=== PATIENT | male | born 1940 | race Caucasian/White ===

== ENCOUNTER → 2017-06-16 | Outpatient (REF) | payer MEDICARE, OTHER ==
[2017-06-16 14:09] LABS: LDH LACTATE DEHYDROGENASE 215 U/L (87-241)
== END ==
LOC: M LAB REF 13:47
DX: C82.50 Diffuse follicle center lymphoma, unspecified site (principal)
CPT/HCPCS: 83615

== ENCOUNTER → 2017-12-23 | Outpatient (REF) | payer MEDICARE, OTHER ==
[2017-12-23 13:57] LABS: APPEARANCE, URINE CLEAR (CLEAR); BACTERIA, URINE AUTO NEGATIVE (NEGATIVE); BILIRUBIN, URINE AUTO NEGATIVE (NEGATIVE); BLOOD, URINE BLOOD NEGATIVE (NEGATIVE); COLOR, URINE YELLOW (YELLOW); GLUCOSE, URINE (UA) AUTO NEGATIVE (NEGATIVE); KETONE, URINE AUTO NEGATIVE (NEGATIVE); LEUKOCYTE ESTERASE, URINE AUTO NEGATIVE (NEGATIVE); MUCUS, URINE SMALL (NEGATIVE); NITRITE, URINE AUTO NEGATIVE (NEGATIVE); PROTEIN, URINE AUTO NEGATIVE (NEGATIVE); RBC, URINE AUTO 0 /HPF (0-3); SPECIFIC GRAVITY URINE AUTO 1.018 (1.002-1.035); SQUAMOUS EPITHELIAL CELL UR AU 0 /HPF (0-6); UROBILINOGEN, URINE AUTO 0.2 mg/dL (0.0-2.0); WBC, URINE AUTO 0 /HPF (0-3)
== END ==
LOC: M SMT 13:34
DX: N39.46 Mixed incontinence (principal)
CPT/HCPCS: 81001

== ENCOUNTER → 2018-10-05 | Outpatient (REF) | payer MEDICARE ==
[~2018-10-05] MED LIST: /OMEP10CA; ACET65TA; AMBI5TAB PO; COLA100C2 PO; COUM1TAB14 PO; COUM1TAB18; FIBER CON PO; FURO20TA2 OR; LACT10SO8; LASIX PO; LOVE1INJ; LOVENOX; MILKSUS; MIRALEX PO; NITR0.4S SL; OXYCODONE PO; PLAV75TA2 PO; PRED50TA; PREDPOW10; PROT1TAB2; SENN8.6T5; SIMV40TA2 PO; VESICARE; VESICARE PO; VICO5TAB; VITAMIN B12; [UNRECOGNIZED DRUG - OTHER] PO
== END ==
LOC: M LAB REF 16:38
PROVIDERS: ATTEND Internal Medicine
DX: N18.3 Chronic kidney disease, stage 3 (moderate) (principal)

== ENCOUNTER → 2019-04-06 | Outpatient (REF) | payer MEDICARE | LOC: M LAB REF 12:20 | PROVIDERS: ATTEND Internal Medicine | DX: C83.00 Small cell B-cell lymphoma, unspecified site (principal) ==

== ENCOUNTER → 2019-10-28 | Outpatient (REF) | payer MEDICARE, OTHER ==
[~2019-10-28] MED LIST changes: +ACE65ERTAB PO; +ACET1TAB55 PO; +ASPI81TAEC PO; +ATOR1TAB21 PO; +D31000TA2 PO; +DETR4CAP PO; +HEPA1INJ78 IV; +HEPA500023 IV; +HEPARIN XX; +NITR4TASL SL; +OMEP-218 PO; +PERCOCET PO; +PRIM50TA6 PO; +WARF-18 PO; +[UNRECOGNIZED DRUG - OTHER] XX
== END ==
LOC: M LAB REF 11:14
PROVIDERS: ATTEND Internal Medicine
DX: C83.00 Small cell B-cell lymphoma, unspecified site (principal); G25.0 Essential tremor; Z51.81 Encounter for therapeutic drug level monitoring

== ENCOUNTER 2020-03-31 13:02 | Inpatient (IN) | payer MEDICARE, OTHER ==
[~2020-03-31] VITALS: Ht 167.6 cm; Wt 70.8 kg
[~2020-03-31 13:02] MED LIST changes: -ACE65ERTAB PO; -ACET1TAB55 PO; -ASPI81TAEC PO; -ATOR1TAB21 PO; -D31000TA2 PO; -DETR4CAP PO; -HEPA1INJ78 IV; -HEPA500023 IV; -HEPARIN XX; -NITR4TASL SL; -OMEP-218 PO; -PERCOCET PO; -PRIM50TA6 PO; -WARF-18 PO; -[UNRECOGNIZED DRUG - OTHER] XX
[2020-03-31] MEDS ORDERED: NS 1,000 ML IV SCH (13:13)
[2020-03-31] MEDS ORDERED: MORPHINE 4 MG/ML 1ML VIAL/SYRINGE (J2270) IV ONE (13:15)
[2020-03-31] MEDS ORDERED: ONDANSETRON 4MG/2ML VIAL IV ONE (13:15)
[2020-03-31] MEDS ORDERED: LIDOCAINE 2% 5ML JELLY UROJET TOP ONE (13:15)
--- NOTE | 2020-03-31 13:55 | ECGEPIP ---
[facility] - ED Test Date: 2020-03-31 Pat Name: ESTEBAN MARTINEZ Department: Room: - Gender: Male Evp: lr : 1940 Requested By: JORGE HUNTER Order Number: [id number] Reading MD: Rand Bianchi Measurements Intervals [place] Rate: 90 P: 39 MN: 240 QRS: 24 QRSD: 97 T: 17 QT: 379 QTc: 465 Interpretive Statements SINUS RHYTHM WITH FIRST DEGREE AV BLOCK NO PRIOR Electronically Signed on 03-31-2020 13:55:01 EST by Rand Bianchi
--- NOTE | 2020-03-31 13:57 | REP ---
INDICATION: TRAUMA COMPARISON: None. TECHNIQUE: AP and lateral views of the mid to distal femur. FINDINGS: No obvious acute fracture or dislocation noted to the visualized femur. IMPRESSION: No acute fracture identified. <Electronically signed by Cheikh Joya > 03/31/20 [id number]
--- NOTE | 2020-03-31 13:58 | REP ---
INDICATION: PREOP COMPARISON: None. TECHNIQUE: Portable AP view of the chest FINDINGS: The mediastinum and cardiac silhouette are stable and within normal limits for portable technique. The lung christian are clear without acute consolidation, effusion, or pneumothorax. Skeletal structures are intact. IMPRESSION: No acute consolidation or effusion appreciated. <Electronically signed by Cheikh Joya > 03/31/20 1418
--- NOTE | 2020-03-31 13:59 | REP ---
INDICATION: INCLUDE PELVIS TRAUMA Nontraumatic hip pain. COMPARISON: None. TECHNIQUE: Frontal view of the pelvis with neutral and cross-table lateral views of the left hip. FINDINGS: There is an acute angulated fracture through the left femoral neck. Underlying age-related degenerative changes through the pelvis and hips noted. IMPRESSION: Acute angulated transverse fracture through the left femoral neck. <Electronically signed by Cheikh Joya > 03/31/20 [id number]
[2020-03-31] MEDS ORDERED: DEXTROSE 50% 50 ML SYRINGE IV PRN (14:00)
[2020-03-31] MEDS ORDERED: NALOXONE INJ 0.4MG/1ML VIAL (J2310 PER 1MG) IV PRN (14:00)
[2020-03-31] MEDS ORDERED: traMADol 50 MG TAB PO PRN ×2 (14:00)
[2020-03-31] MEDS ORDERED: GLUCAGON INJ 1MG VIAL SC PRN (14:00)
[2020-03-31] MEDS ORDERED: MORPHINE 2 MG/ML 1ML VIAL (J2270) IV PRN (14:00)
[2020-03-31] MEDS ORDERED: GLUCOSE 4GM CHEW TABLET PO PRN (14:00)
[2020-03-31] MEDS ORDERED: WARF-18 PO ×2 (14:10)
[2020-03-31] MEDS ORDERED: DETR4CAP PO (14:12)
[2020-03-31] MEDS ORDERED: D31000TA2 PO (14:12)
[2020-03-31] MEDS ORDERED: PRIM50TA6 PO (14:12)
[2020-03-31] MEDS ORDERED: ACE65ERTAB PO (14:12)
[2020-03-31 14:17] LABS: BASO % 0.3 % (0.0-1.0); EOS % 0.3 % (0.0-3.0); HEMATOCRIT 39.1 % (42.0-52.0); HEMOGLOBIN 12.7 g/dl (13.5-17.5); LYMPH # 1.6 10^3/uL (1.5-5.0); LYMPH % 17.8 % (24.0-44.0); MEAN CORPUSCULAR HEMOGLOBIN 31.4 pg (27.0-33.0); MEAN CORPUSCULAR HGB CONC 32.5 g/dl (32.0-36.5); MEAN CORPUSCULAR VOLUME 96.8 fl (80.0-96.0); MONO # 0.8 10^3/uL (0.0-0.8); MONO % 8.9 % (0.0-5.0); NEUTROPHILS # 6.4 10^3/uL (1.5-8.5); PLATELET COUNT, AUTOMATED 191 10^3/uL (150-450); RED BLOOD COUNT 4.04 10^6/uL (4.30-6.10); WHITE BLOOD COUNT 8.8 10^3/uL (4.0-10.0)
[2020-03-31 14:35] LABS: INR 1.88
[2020-03-31 14:50] LABS: ALBUMIN 3.6 GM/DL (3.2-5.2); ALT/SGPT 36 U/L (12-78); BILIRUBIN,DIRECT < 0.1 MG/DL (0.0-0.2); BILIRUBIN,TOTAL 0.3 MG/DL (0.2-1.0); BLOOD UREA NITROGEN 24 MG/DL (7-18); CALCIUM LEVEL 8.1 MG/DL (8.8-10.2); CARBON DIOXIDE LEVEL 27 MEQ/L (21-32); CHLORIDE LEVEL 107 MEQ/L (98-107); CK-MB VALUE MASS 3.3 NG/ML (<3.6); CPK CREATINE PHOSPHOKINASE 133 U/L (39-308); CREATININE FOR GFR 1.09 MG/DL (0.70-1.30); GLOMERULAR FILTRATION RATE > 60.0 (>35); GLUCOSE, FASTING 88 MG/DL (70-100); MB/CK RELATIVE INDEX 2.48 (< OR =4); POTASSIUM SERUM 4.2 MEQ/L (3.5-5.1); SODIUM LEVEL 141 MEQ/L (136-145); TOTAL PROTEIN 6.5 GM/DL (6.4-8.2)
[2020-03-31] MEDS ORDERED: MOM 30ML SUSPENSION UDC PO PRN (17:45)
[2020-03-31] MEDS ORDERED: MIRALAX *UNIT DOSE* 17GM PACKET PO PRN (17:45)
[2020-03-31] MEDS ORDERED: SENOKOT S TAB PO PRN (17:45)
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
[2020-03-31] MEDS ORDERED: PHYTONADIONE 2.5 MG **1/2 TAB PO ONE (19:00)
[2020-03-31] MEDS: METOPROLOL TART 12.5 MG PER 1/2 TAB PO SCH (20:14)
[2020-03-31] MEDS: PRIMIDONE 50 MG TAB PO SCH (20:15)
[2020-03-31] MEDS ORDERED: ACETAMINOPHEN TAB 650MG DOSE (2X325MG) PO PRN (21:15)
[2020-03-31 22:00] VITALS: BP 112/70
[2020-04-01] VITALS (9 sets, daily range): BP systolic 106–153; BP diastolic 66–95
[2020-04-01] MEDS ORDERED: ceFAZolin SOD 2 GM in IV 1 EA IV ONE (06:00)
[2020-04-01 06:10] LABS: HEMATOCRIT 39.5 % (42.0-52.0); HEMOGLOBIN 13.1 g/dl (13.5-17.5); MEAN CORPUSCULAR HEMOGLOBIN 32.1 pg (27.0-33.0); MEAN CORPUSCULAR HGB CONC 33.2 g/dl (32.0-36.5); MEAN CORPUSCULAR VOLUME 96.8 fl (80.0-96.0); PLATELET COUNT, AUTOMATED 167 10^3/uL (150-450); RED BLOOD COUNT 4.08 10^6/uL (4.30-6.10); WHITE BLOOD COUNT 10.9 10^3/uL (4.0-10.0)
[2020-04-01 06:20] LABS: INR 1.67; PROTHROMBIN TIME 20.1 SECONDS (12.5-14.3)
[2020-04-01] MEDS ORDERED: ceFAZolin 1GM VIAL (J0690 PER 500MG) As Ordered ONE (06:22)
[2020-04-01] MEDS ORDERED: ceFAZolin 2 GM/D5W 50 ML IV BAG (J0690 PER 500MG) As Ordered ONE (06:22)
[2020-04-01 06:30] LABS: BLOOD UREA NITROGEN 24 MG/DL (7-18); CALCIUM LEVEL 8.3 MG/DL (8.8-10.2); CARBON DIOXIDE LEVEL 29 MEQ/L (21-32); CHLORIDE LEVEL 106 MEQ/L (98-107); CREATININE FOR GFR 1.13 MG/DL (0.70-1.30); GLOMERULAR FILTRATION RATE > 60.0 (>35); GLUCOSE, FASTING 143 MG/DL (70-100); POTASSIUM SERUM 4.7 MEQ/L (3.5-5.1); SODIUM LEVEL 138 MEQ/L (136-145)
[2020-04-01] MEDS ORDERED: PHYTONADIONE 2.5 MG **1/2 TAB PO STA (07:14)
--- NOTE | 2020-04-01 07:20 | IPNPDOC ---
Date Seen The patient was seen on 04/01/20. Progress Note SUBJECTIVE: inr still elevated. ffp ordered. for or. npo after midnight . no new c/o. pain is controlled. no sob/cp/pressure/tightness. once inr<1.5, may go to OR OBJECTIVE: PHYSICAL EXAMINATION: VITAL SIGNS: See below GENERAL APPEARANCE: asleep but arousable. no distress HEENT: moist mm. No cervical lymphadenopathy or thyromegaly. no JVD CARDIOVASCULAR: S1, S2, irregularly irregular LUNGS: Clear to auscultation. No wheezing, rales or rhonchi ABDOMEN: Positive bowel sounds, soft, nontender, nondistended, normoactive bowel sounds. Well-healed surgical scars from prior splenectomy EXTREMITIES: No pitting edema. limited rom due to left hip fx. unable to assess. LABORATORY DATA: See below. IMAGING: INDICATION: TRAUMA COMPARISON: None. TECHNIQUE: AP and lateral views of the mid to distal femur. FINDINGS: No obvious acute fracture or dislocation noted to the visualized femur. IMPRESSION: No acute fracture identified. <Electronically signed by Cheikh Joya > 03/31/20 1353 INDICATION: INCLUDE PELVIS TRAUMA Nontraumatic hip pain. COMPARISON: None. TECHNIQUE: Frontal view of the pelvis with neutral and cross-table lateral views of the left hip. FINDINGS: There is an acute angulated fracture through the left femoral neck. Underlying age-related degenerative changes through the pelvis and hips noted. IMPRESSION: Acute angulated transverse fracture through the left femoral neck. <Electronically signed by Cheikh Joya > 03/31/20 1355 INDICATION: PREOP COMPARISON: None. TECHNIQUE: Portable AP view of the chest FINDINGS: The mediastinum and cardiac silhouette are stable and within normal limits for portable technique. The lung christian are clear without acute consolidation, effusion, or pneumothorax. Skeletal structures are intact. IMPRESSION: No acute consolidation or effusion appreciated. <Electronically signed by Cheikh Joya > 03/31/20 1356 MICROBIOLOGY: Please see below. ASSESSMENT: .79-year-old male with prior history of ITP status post splenectomy Raynolds disease, chronic kidney disease stage III, prostate cancer, hypertension, A. fib, PE 15 years ago, on chronic warfarin. Hyperthyroidism with thyroid resection, non-Hodgkin's lymphoma, previously followed by Dr. Ocasio, overactive bladder, BPH, was in his usual state of health until today when he tripped on the saw horse's leg , while helping his friends with woodworking. Patient had no prodromal symptoms prior to the fall and denied chest pain, pressure, tightness, lightheadedness, dizziness, palpitations, diaphoresis, nausea, vomiting, shortness of breath, fever, chills, changes in appetite, bright red blood per rectum, melena, black tarry stools, sore throat, changes in vision, earache, vertigo, weight gain, weight loss, polyphagia, polydipsia, upper or lower ex tremity weakness, paresthesias, rash or abnormal nodules. PROBLEM LIST: Mechanical fall from standing Acute angulated transverse fracture through the left femoral neck. Medical clearance-awaiting inr<1.5 coagulopathy due to warfarin, requires reversal prior to surgery history of ITP status post splenectomy Raynauld's disease, chronic kidney disease stage III, prostate cancer, hypertension, A. fib, , on chronic warfarin. PE 15 years ago Hyperthyroidism with thyroid resection, non-Hodgkin's lymphoma, previously followed by Dr. Ocasio, BPH Plan: Pt was resistant to reversing INR for medical clearance, and did not want vitamin K yesterday. after much discussion, pt agreed, but INR still elevated. This am, pt gave consent to receive FFP transfusion. recheck inr after transfusion, and if <1.5, may proceed to OR. no acute cardiac ischemic complaints. bed rest. npo. on ivfluids and hypoglycemic protocol. VS, I&O, 24H, Fishbone Vital Signs/I&O Vital Signs Date Time Temp Pulse Resp B/P (MAP) Pulse Ox O2 Delivery O2 Flow Rate FiO2 04/01/20 06:00 99.1 87 20 126/79 (95) 92 Room Air I&O- Last 24 Hours up to 6 AM 04/01/20 06:00 Intake Total 120 ml Output Total 650 ml Balance -530 ml Laboratory Data 24H LABS Laboratory Tests 2 03/31/20 13:57: Immature Granulocyte % (Auto) 0.7, Neutrophils (%) (Auto) 72.0H, Lymphocytes (%) (Auto) 17.8L, Monocytes (%) (Auto) 8.9H, Eosinophils (%) (Auto) 0.3, Basophils (%) (Auto) 0.3, Neutrophils # (Auto) 6.4, Lymphocytes # (Auto) 1.6, Monocytes # (Auto) 0.8, Eosinophils # (Auto) 0.0, Basophils # (Auto) 0.0, Nucleated Red Blood Cells % (auto) 0.0, Prothrombin Time 22.0H, Prothromb Time International Ratio 1.88, Anion Gap 7L, Glomerular Filtration Rate > 60.0, Calcium Level 8.1L, Total Bilirubin 0.3, Direct Bilirubin < 0.1, Aspartate Amino Transf (AST/SGOT) 27, Alanine Aminotransferase (ALT/SGPT) 36, Alkaline Phosphatase 78, Total Creatine Kinase 133, Creatine Kinase MB 3.3, Creatine Kinase MB Relative Index 2.48, Total Protein 6.5, Albumin 3.6, Albumin/Globulin Ratio 1.2, Coronavirus (COVID-19)(PCR) NEGATIVE 03/31/20 14:35: Urine Color YELLOW, Urine Appearance CLEAR, Urine pH 6.0, Urine Specific [place] 1.018, Urine Protein NEGATIVE, Urine Glucose (UA) NEGATIVE, Urine Ketones NEGATIVE, Urine Blood NEGATIVE, Urine Nitrite NEGATIVE, Urine Bilirubin N EGATIVE, Urine Urobilinogen 0.2, Urine Leukocyte Esterase NEGATIVE, Urine WBC (Auto) 1, Urine RBC (Auto) 2, Urine Hyaline Casts (Auto) 0, Urine Bacteria (Auto) NEGATIVE, Urine Squamous Epithelial Cells 0, Urine Mucus (Auto) SMALL, Urine Sperm (Auto) 03/31/20 23:35: Bedside Glucose (Misc Panel) 119H 04/01/20 05:44: Nucleated Red Blood Cells % (auto) 0.0, Prothrombin Time 20.1H, Prothromb Time International Ratio 1.67, Anion Gap 3L, Glomerular Filtration Rate > 60.0, Calcium Level 8.3L 04/01/20 05:56: Bedside Glucose (Misc Panel) 135H CBC/BMP Laboratory Tests 03/31/20 13:57 04/01/20 05:44 ROSANNA BRANDON MD Apr 01, 2020 07:20
[2020-04-01] MEDS: ACETAMINOPHEN 650MG ER TAB (TYLENOL ARTHRITIS) PO SCH (08:08)
[2020-04-01] MEDS: VITAMIN D 1,000 INTERNATIONAL UNITS TABLET PO SCH (08:09)
[2020-04-01] MEDS: PRIMIDONE 50 MG TAB PO SCH (08:09)
[2020-04-01] MEDS: METOPROLOL TART 12.5 MG PER 1/2 TAB PO SCH ×3 (08:09→21:09)
[2020-04-01] MEDS: TOLTERODINE TARTRATE 2 MG LA CAP (DETROL LA) PO SCH (08:09)
[2020-04-01] MEDS ORDERED: EPINEPHrine INJ 1 MG/ML 1ML AMP As Ordered ONE (08:57)
[2020-04-01] MEDS ORDERED: ROCURONIUM BROMIDE 50 MG/5 ML VIAL As Ordered ONE (09:01)
[2020-04-01] MEDS ORDERED: propofoL 200 MG/20 ML VIAL As Ordered ONE (09:01)
[2020-04-01] MEDS ORDERED: LIDOCAINE 2% 100MG/5ML SDV (FOR ANES.) As Ordered ONE (09:02)
[2020-04-01] MEDS ORDERED: fentaNYL 250 MCG/5 ML INJECTION (J3010) As Ordered ONE (09:02)
[2020-04-01] MEDS ORDERED: MIDAZOLAM INJ 2MG/2ML VIAL (J2250 PER 1MG) As Ordered ONE (09:02)
[2020-04-01] MEDS ORDERED: TRANEXAMIC ACID 100 MG/ML 10ML VIAL As Ordered ONE (10:09)
[2020-04-01] MEDS ORDERED: ONDANSETRON 4MG/2ML VIAL As Ordered ONE (10:14)
[2020-04-01] MEDS ORDERED: METOCLOPRAMIDE INJ 10MG/2ML VIAL (J2765 PER 1) As Ordered ONE (10:14)
[2020-04-01] MEDS ORDERED: SUGAMMADEX SODIUM 500 MG/5 ML VIAL (BRIDION) As Ordered ONE (10:30)
[2020-04-01] MEDS ORDERED: BUPIVACAINE LIPOSOME/PF 1.3% 20ML VIAL (13.3MG/ML)(EXPAREL)(C9290 PER1MG) As Ordered ONE (11:24)
[2020-04-01] MEDS ORDERED: BUPIVACAINE HCL 0.5% 10ML VIAL As Ordered ONE (11:24)
[2020-04-01] MEDS ORDERED: oxyCODONE 5MG TAB PO PRN (12:00)
[2020-04-01] MEDS ORDERED: fentaNYL 100 MCG/2 ML INJECTION (J3010) IV PRN (12:00)
[2020-04-01] MEDS ORDERED: LR 1,000 ML IV SCH (12:00)
[2020-04-01] MEDS ORDERED: ONDANSETRON 4MG/2ML VIAL IV PRN ×2 (12:00→12:15)
[2020-04-01] MEDS ORDERED: PERCOCET 5MG/325MG TAB PO PRN (12:15)
[2020-04-01] MEDS ORDERED: MORPHINE 4 MG/ML 1ML VIAL/SYRINGE (J2270) IV PRN (12:15)
[2020-04-01 12:26] LABS: INR 1.35
[2020-04-01] MEDS ORDERED: ACETAMINOPHEN 500 MG TAB PO ONE (12:30)
--- NOTE | 2020-04-01 13:13 | REP ---
INDICATION: S/P LEFT HIP Status post arthroplasty. COMPARISON: None. TECHNIQUE: AP and cross-table lateral views. FINDINGS: The patient is status post left hip replacement with normal positioning and appearance to the femoral and acetabular components. Overlying postsurgical changes appreciated. IMPRESSION: Satisfactory left hip replacement radiographs. <Electronically signed by Cheikh Joya > 04/01/20 1148
[2020-04-01 13:32] LABS: CK-MB VALUE MASS 5.3 NG/ML (<3.6); MAGNESIUM LEVEL 2.2 MG/DL (1.8-2.4); MB/CK RELATIVE INDEX 3.42 (< OR =4); POTASSIUM SERUM 4.3 MEQ/L (3.5-5.1); TROPONIN I 0.51 NG/ML (< 0.10)
[2020-04-01] MEDS ORDERED: MORPHINE 2 MG/ML 1ML VIAL (J2270) IV PRN ×2 (14:04→15:00)
[2020-04-01] MEDS ORDERED: NITROGLYCERIN 0.4 MG SUBL TABLET SL PRN (15:00)
[2020-04-01] MEDS ORDERED: CALCIUM GLUCONATE 1,000 MG in D5W MINI-BAG PLUS 100 ML IV ONE (15:00)
[2020-04-01] MEDS: D5W/0.45% SODIUM CHLORIDE 1,000 ML IV SCH (15:22)
[2020-04-01] MEDS: LR 1,000 ML IV SCH ×2 (15:24→20:00)
[2020-04-01 15:53] LABS: CK-MB VALUE MASS 6.8 NG/ML (<3.6); MB/CK RELATIVE INDEX 3.35 (< OR =4); TROPONIN I 0.5 NG/ML (< 0.10)
[2020-04-01 22:40] LABS: CK-MB VALUE MASS 6.9 NG/ML (<3.6); MB/CK RELATIVE INDEX 2.33 (< OR =4); TROPONIN I 0.43 NG/ML (< 0.10)
[2020-04-02] VITALS: BP 129/75
[2020-04-02 02:53] LABS: HEMOGLOBIN 11.6 g/dl (13.5-17.5); MEAN CORPUSCULAR HEMOGLOBIN 31.4 pg (27.0-33.0); MEAN CORPUSCULAR HGB CONC 32.2 g/dl (32.0-36.5); MEAN CORPUSCULAR VOLUME 97.3 fl (80.0-96.0); PLATELET COUNT, AUTOMATED 139 10^3/uL (150-450); WHITE BLOOD COUNT 10.7 10^3/uL (4.0-10.0)
[2020-04-02 03:06] LABS: INR 1.18; PROTHROMBIN TIME 15.3 SECONDS (12.5-14.3)
[2020-04-02 03:20] LABS: BLOOD UREA NITROGEN 24 MG/DL (7-18); CALCIUM LEVEL 7.8 MG/DL (8.8-10.2); CARBON DIOXIDE LEVEL 28 MEQ/L (21-32); CHLORIDE LEVEL 105 MEQ/L (98-107); CK-MB VALUE MASS 6.4 NG/ML (<3.6); CPK CREATINE PHOSPHOKINASE 356 U/L (39-308); CREATININE FOR GFR 1.15 MG/DL (0.70-1.30); GLOMERULAR FILTRATION RATE > 60.0 (>35); GLUCOSE, FASTING 150 MG/DL (70-100); POTASSIUM SERUM 4.1 MEQ/L (3.5-5.1); SODIUM LEVEL 136 MEQ/L (136-145)
[2020-04-02] MEDS: LR 1,000 ML IV SCH (03:31)
[2020-04-02 04:00] VITALS: BP 113/66
[2020-04-02] MEDS ORDERED: PERCOCET 5MG/325MG TAB PO PRN (06:00)
[2020-04-02] MEDS: ceFAZolin SOD 2 GM in IV 1 EA IV SCH ×2 (06:48→14:35)
--- NOTE | 2020-04-02 07:29 | ECGEPIP ---
[facility] Test Date: 2020-04-01 Pat Name: ESTEBAN MARTINEZ Department: Room: [place] [address] Gender: Male Director Of Field Sales: : 1940 Requested By: Alvaro Clifton Order Number: [id number] Reading MD: Salinas Wolf Measurements Intervals [place] Rate: 90 P: 22 NC: 230 QRS: 30 QRSD: 98 T: 4 QT: 386 QTc: 473 Interpretive Statements SINUS RHYTHM WITH FIRST DEGREE AV BLOCK SIMILAR TO 03/31/20 Electronically Signed on 04-02-2020 7:28:54 EST by Salinas Wolf
[2020-04-02 08:00] VITALS: BP 120/56
[2020-04-02] MEDS: ACETAMINOPHEN TAB 650MG DOSE (2X325MG) PO PRN ×3 (08:04→14:36)
[2020-04-02] MEDS: VITAMIN D 1,000 INTERNATIONAL UNITS TABLET PO SCH (08:05)
[2020-04-02] MEDS: METOPROLOL TART 12.5 MG PER 1/2 TAB PO SCH (08:05)
[2020-04-02] MEDS: ENOXAPARIN 80MG/0.8ML SYRINGE (J1650 PER 10MG) SC SCH ×2 (08:06→20:24)
[2020-04-02] MEDS: TOLTERODINE TARTRATE 2 MG LA CAP (DETROL LA) PO SCH (08:06)
[2020-04-02] MEDS: D5W/0.45% SODIUM CHLORIDE 1,000 ML IV SCH (08:16)
[2020-04-02] MEDS: ACETAMINOPHEN 650MG ER TAB (TYLENOL ARTHRITIS) PO SCH (09:00)
--- NOTE | 2020-04-02 09:39 | ECHO ---
DATE OF PROCEDURE: 04/01/2020 Age: 79 Gender: Male Height: 66 inches Weight: 155 pounds Body surface area: 1.79 m2 PATIENT LOCATION: Inpatient PCU Room 3216. REFERRING PHYSICIAN: Michelle Souza MD. INDICATION: Nonsustained ventricular tachycardia during hip surgery. MEASUREMENTS: 2D Measurements: RV 4.2 cm LV 4.5 cm Septum 1.2 cm Posterior wall 1.2 cm Aortic Root 3.4 cm LA 4.0 cm LVEF 45% Doppler Measurements: AV 1.17 m/s LVOT 0.94 m/s LVOT diameter 2.2 cm MV-E 52, A 104, E/A ratio 0.5 E prime medial 4.8, A prime medial 10, E prime lateral 7 Average E/E prime ratio 8.8/PCWP 12.8 mmHg PV 0.95 m/s Pulmonary artery acceleration time 74 msec PASP 48 mmHg IVC 1.5 cm COMMENTS: Normal sinus rhythm without intraventricular conduction disturbance. Occasional isolated premature ventricular contraction (PVC). M-mode and two-dimensional echocardiography was performed with pulse, continuous wave, color flow, and tissue Doppler studies. Borderline concentric left ventricular hypertrophy with localized distal lateral and apical hypokinesis to akinesis. Other left ventricular wall segments move normally. There appeared to be at least a mild impairment of global resting systolic function. Mildly dilated left atrium with grade 1 left ventricular (LV) diastolic dysfunction, but currently normal estimated mean left atrial pressure. Mildly dilated right heart chambers with normal right ventricular free wall motion and Doppler evidence of moderate pulmonary hypertension. Normal inferior vena cava (IVC) size against an elevated central venous pressure. Normal aortic dimensions. Mild aortic valvular sclerosis without stenosis and only trace insufficiency. Mild mitral annular calcification without inflow tract obstruction, but mild insufficiency. Normal appearing tricuspid valve with moderate insufficiency. No apparent intracardiac mass or pericardial effusion. A preliminary report of this study was relayed directly to the referring physician with particular attention to the localized wall motion abnormality and concern that the observed ventricular ectopy may be a reflection of an acute coronary syndrome. RENNYD
[2020-04-02 09:49] LABS: CK-MB VALUE MASS 6.8 NG/ML (<3.6); MB/CK RELATIVE INDEX 1.23 (< OR =4); TROPONIN I 0.56 NG/ML (< 0.10)
[2020-04-02 12:00] VITALS: BP 100/66
[2020-04-02 15:20] LABS: CK-MB VALUE MASS 5.9 NG/ML (<3.6); MB/CK RELATIVE INDEX 1.59 (< OR =4); TROPONIN I 0.54 NG/ML (< 0.10)
--- NOTE | 2020-04-02 15:54 | IPNPDOC ---
Date Seen The patient was seen on 04/02/20. Progress Note SUBJECTIVE: no c/o chest pain, pressure, tightness, palpitaitons, lightheadedness, dizziness, near syncope. no c/o n/v/abd pain, diaphoresis, feeling of impending doom. only wanted tylenol for hip pain 7/10 pain scale with sbp 150-170mmHg, and metoprolol given. card grijalva with trop 0.5-unchanged x 12hrs. Pt says,"I''m 79. I don't want my heart looked at." OBJECTIVE PHYSICAL EXAMINATION: VITAL SIGNS: Please see below. GEN: no respiratory distress. appears withdrawn, not maintaining eye contact. irritated. no conversational dyspnea lying in 30 degree HOB elevation HEENT: moist mm. No cervical lymphadenopathy or thyromegaly. no JVD no carotid bruit. CARDIOVASCULAR: S1, S2, irregularly irregular not tachy cardic. nondisplaced PMI, slight RV heave. no S3. LUNGS: diminished. no wheezing. ABDOMEN: Positive bowel sounds, soft, nontender, nondistended, normoactive bowel sounds. Well-healed surgical scars from prior splenectomy EXTREMITIES: No pitting edema. limited rom due to left hip orif. SKIN: warm dry well perfused pink in color. able towiggle his toes b/l. LABORATORY DATA, IMAGING STUDIES, MICROBIOLOGY: Please see below. EKG: Pat Name: ESTEBAN MARTINEZ Department: Room: [place] [address] Gender: Male Rural Mail Contractor: : 1940 Requested By: Alvaro Clifton Order Number: [id number] Reading MD: Salinas Wolf Measurements Intervals [place] Rate: 90 P: 22 NC: 230 QRS: 30 QRSD: 98 T: 4 QT: 386 QTc: 473 Interpretive Statements SINUS RHYTHM WITH FIRST DEGREE AV BLOCK SIMILAR TO 03/31/20 Electronically Signed on 04-02-2020 7:28:54 EST by Salinas Wolf Echocardiogram: DATE OF PROCEDURE: 04/01/2020 Age: 79 Gender: Male Height: 66 inches Weight: 155 pounds Body surface area: 1.79 m2 PATIENT LOCATION: Inpatient PCU Room [facility] [place]. REFERRING PHYSICIAN: Rosanna Brandon MD. INDICATION: Nonsustained ventricular tachycardia during hip surgery. MEASUREMENTS: 2D Measurements: RV 4.2 cm LV 4.5 cm Septum 1.2 cm Posterior wall 1.2 cm Aortic Root 3.4 cm LA 4.0 cm LVEF 45% Doppler Measurements: AV 1.17 m/s LVOT 0.94 m/s LVOT diameter 2.2 cm MV-E 52, A 104, E/A ratio 0.5 E prime medial 4.8, A prime medial 10, E prime lateral 7 Average E/E prime ratio 8.8/PCWP 12.8 mmHg PV 0.95 m/s Pulmonary artery acceleration time 74 msec PASP 48 mmHg IVC 1.5 cm COMMENTS: Normal sinus rhythm without intraventricular conduction disturbance. Occasional isolated premature ventricular contraction (PVC). M-mode and two-dimensional echocardiography was performed with pulse, continuouswave, color flow, and tissue Doppler studies. Borderline concentric left ventricular hypertrophy with localized distal lat eraland apical hypokinesis to akinesis. Other left ventricular wall segments move normally. There appeared to be at least a mild impairment of global resting systolic function. Mildly dilated left atrium with grade 1 left ventricular (LV) diastolic dysfunction, but currently normal estimated mean left atrial pressure. Mildly dilated right heart chambers with normal right ventricular free wall mo tion and Doppler evidence of moderate pulmonary hypertension. Normal inferior vena cava (IVC) size against an elevated central venous pressure. Normal aortic dimensions. Mild aortic valvular sclerosis without stenosis and only trace insufficiency. Mild mitral annular calcification without inflow tract obstruction, but mild insufficiency. Normal appearing tricuspid valve with moderate insufficiency. No apparent intracardiac mass or pericardial effusion. A preliminary report of this study was relayed directly to the referring physician with particular attention to the localized wall motion abnormality andconcern that the observed ventricular ectopy may be a reflection of an acute coronary syndrome. DD: Casper Patterson MD, [facility] 04/01/20 8793 DT: ARTEMIO 04/02/20 0850 DS: CIARRA 04/02/20 1020 T ASSESSMENT AND PLAN: 79-year-old male with prior history of ITP status post splenectomy Raynolds disease, chronic kidney disease stage III, prostate cancer, hypertension, A. fib, PE 15 years ago, on chronic warfarin. Hyperthyroidism with thyroid resection, non-Hodgkin's lymphoma, previously followed by Dr. Ocasio, overactive bladder, BPH, was in his usual state of health until today when he tripped on the saw horse's leg , while helping his friends with woodworking. Patient had no prodromal symptoms prior to the fall and denied chest pain, pressure, tightness, lightheadedness, dizziness, palpitations, diaphoresis, nausea, vomiting, shortness of breath, fever, chills, changes in appetite, bright red blood per rectum, melena, black tarry stools, sore throat, changes in vision, earache, vertigo, weight gain, weight loss, polyphagia, polydipsia, upper or lower extremity weakness, paresthesias, rash or abnormal nodules. Mechanical Fall/Left hip fracture s/p ORIF pod #1 -perioperative maangement per orthopedic surgery. on pain meds prn, bowel regimen and restarted on warfarin. Demand-mediated ischemia with positive troponins -pt says, "I'm 79. I don't want my heart looked at." He is asymptomatic without any exponential increase in troponin but ECHO has hypokinesis unsure whether this is old or new. EKG read by Dr. Wolf reviewed. Discussed w patient that he has the option to get transferred to [place] for coronary angiogram, but currently reluctant. medical mgt with low dose asa, coreg, lipitor, lisinopril, and prn nitroglycerin. on lovenox 1mg/kg sq q12h until warfarin at therapeutic inr of 2-3. then, will dc lovenox. if pt changes his mind, becomes symptomatic, or exponentially increases his troponin, pt should be offered Left Heart cath and tx to [facility] as an option again. CHF EF 45%, compensated -new diagnosis -no overt edema or rales on exam. received ivfluids in the periooperative period. monitor i/o. avoid positive fluid balance. fluid restrict 2liters 2 g sodium diet, weigh daily. on lisinopril, statins, coreg, asa, and warfarin. if pt changes his mind, becomes decompensated, becomes symptomatic, or exponentially increases his troponin, pt should be offered Left Heart cath and tx to [facility] as an option again. Moderate Pulmonary HTN -h/o PE 15years ago. back on lovenox bridged with warfarin. monitor for cor pulmonale/right-sided chf and left heart failure. complicating his care. Chronic Atrial Fibrillation -rate controlled. back on warfarin CAD, new diagnosis -on lisinopril, statins, coreg, asa, and warfarin. if pt changes his mind, becomes decompensated, becomes symptomatic, or exponentially increases his troponin, pt should be offered Left Heart cath and tx to [facility] as an option again. continue to cycle cardiac markers, tele monitoring, and serial cardiac ischemic symptoms surveillance. History of PE 15years ago -back on warfarin bridged with lovenox. echo-moderate pulm htn. history of ITP status post splenectomy -pcp to update immunizations especially against gram negative bacteria. Raynauds disease -stable chronic kidney disease stage III -at baseline. strict i/o. weigh daily. renally dose meds, and avoid nephrotoxins prostate cancer -followed at urology clinic. h/o Hyperthyroidism with thyroid resection -on supplemental synthroid h/o non-Hodgkin's lymphoma, 10 years ago -no recurrence per pt. BPH -on flomax disposition: ARU screen. VS, I&O, 24H, Fishbone Vital Signs/I&O Vital Signs Date Time Temp Pulse Resp B/P (MAP) Pulse Ox O2 Delivery O2 Flow Rate FiO2 04/02/20 12:00 97.4 84 16 100/66 (77) 86 Room Air 04/02/20 04:00 2.0 I&O- Last 24 Hours up to 6 AM 04/02/20 06:00 Intake Total 1985 ml Output Total 1425 ml Balance 560 ml Laboratory Data 24H LABS Laboratory Tests 2 04/01/20 15:03: Total Creatine Kinase 203, Creatine Kinase MB 6.8H, Creatine Kinase MB Relative Index 3.35, Myoglobin 482H, Troponin I 0.50H 04/01/20 21:12: Total Creatine Kinase 296, Creatine Kinase MB 6.9H, Creatine Kinase MB Relative Index 2.33, Troponin I 0.43H 04/02/20 02:45: Total Creatine Kinase 356H, Creatine Kinase MB 6.4H, Creatine Kinase MB Relative Index 1.80, Troponin I 0.50H, Nucleated Red Blood Cells % (auto) 0.0, Prothrombin Time 15.3H, Prothromb Time International Ratio 1.18, Anion Gap 3L, Glomerular Filtration Rate > 60.0, Calcium Level 7.8L 04/02/20 09:02: Total Creatine Kinase 555H, Creatine Kinase MB 6.8H, Creatine Kinase MB Relative Index 1.23, Troponin I 0.56H 04/02/20 14:45: CBC/BMP Laboratory Tests 04/02/20 02:45 ROSANNA BRANDON MD Apr 02, 2020 15:02
[2020-04-02 16:00] VITALS: BP 109/68
--- NOTE | 2020-04-02 16:36 | RO ---
OPERATIVE NOTE DATE OF OPERATION: 04/01/2020 PREOPERATIVE DIAGNOSIS: Left hip femoral neck fracture. POSTOPERATIVE DIAGNOSIS: Left hip femoral neck fracture. PLANNED PROCEDURE: Left hip hemiarthroplasty, cemented. PROCEDURE PERFORMED: Left hip hemiarthroplasty, cemented. SURGEON: Dr. Francisco Vásquez. GRIPS: Dr. Fabrice Anton. TYPE OF ANESTHETIC: General anesthetic. DRAFTER ELECTRONIC: None. OPERATIVE PREAMBLE: This is an 79-year-old man who sustained a mechanical fall. He sustained a displaced femoral neck fracture. After discussion of pros, cons, risks, and benefits of surgery, we decided to proceed. INR was slightly elevated at 1.6. However, after discussion with engineering instructor crane ladle person and the hospitalist, Dr. Souza decided that it was safe to proceed with the surgery with a general anesthetic and giving FFP during the case which occurred. Left lower extremity was marked, and patient had no further questions and wished to proceed with surgery. OPERATIVE REPORT: Patient was brought to the operating theater. Administered general anesthetic. He was administered 2 units of FFP throughout the case. Tranexamic acid was held due to past history of PE. Two grams of IV Ancef was administered prior to the start of the case. The patient was placed in the left lateral decubitus with the aid of a Nehemias hip positioner. All bony prominences were padded. Axillary roll was placed. SCD was used on the down leg. Limb was prepped and draped in the usual sterile fashion with chlorhexidine base prep solution allowing over three minutes prep solution drying time prior to draping. Preoperative time out was performed to confirm the site, the patient, and the surgery. We began by making a standard lateral incision centered over the proximal aspect of the hip. We carried the dissection down through skin and subcutaneous tissue and achieved meticulous hemostasis. Incised the tensor fascia in line with the skin incision. I sharply released the abductors off the greater trochanter. I made a T-shaped capsulotomy. I tagged each limb with #1 Vicryl suture. Neck cut was made approximately 1 cm above the level of the lesser trochanter. Femoral head was removed. Acetabulum was washed off any bony debris. I sized the femoral head to be a size 48 mm. I used sequential broaching up to a size 5. I used a distal broach. I used a box osteotome as well as lateralizing reamers proximally to achieve a good fit and appropriate version. I trialed the size 5 mm broach and -3 mm offset taper and size 48 mm head. This appeared appropriate and stable in all directions in flexion and internal rotation as well as external rotation and extension. No impingement or instability. Normal shuck test, normal leg length. Trial components were then removed and the canal thoroughly irrigated. Distal cement restrictor was placed in appropriate level, a size 3. Cement was mixed using third generation cement mixing techniques. Cement was placed into the canal with pressurization techniques. Component was selected, size 5 Synthes stem. Synthes bipolar stem size 5 was inserted, appropriate version, and cement allowed to fully cure. Trunnion was cleaned and the 3 mm neck junction taper was inserted into the final component head, size 48, and impacted into place. Mueller taper achieved a good solid fixation at the trunnion. Final component was then reduced into the hip joint and ensuring soft tissue into position. No cement into the acetabulum. Again, trialing was performed and found to be adequate. Capsule was closed with interrupted #1 Vicryl sutures. Abductors were fixated using #2 FiberWire sutures through drill holes in the greater trochanter. #1 Stratafix was used in a running fashion to close the tensor fascia nelida, subcutaneous tissue with 2-0 Vicryl suture, and skin with Prineo dressing. Prior to application of the dressing, I used 20 mL of Exparel mixed with 20 mL of 0.25% Marcaine and 20 mL of saline instilled around the incision for local anesthesia. Prineo dressing was allowed to fully harden and to fully set. Patient woken up from general anesthetic transferred off the operating table and taken to the postanesthetic care unit in stable condition. All sponge count, needle counts, and instrument counts were correct. No complications. Estimated blood loss 150 mL. Plan for the patient is to be weightbearing as tolerated and receive PT and OT while admitted to the hospital for safety from embolization and discharged home. DVT prophylaxis will be achieved with a home dose of Coumadin at the aid of the hospitalist service. Follow up will be in two weeks' time and leave the bandage on when taking shower over towel starting postoperative day two.
[2020-04-02] MEDS ORDERED: WARFARIN SOD 2.5MG TAB PO SCH (17:00)
[2020-04-02 20:00] VITALS: BP 132/56
[2020-04-02] MEDS: CARVedilol 3.125 MG TAB PO SCH (20:24)
[2020-04-02 21:45] LABS: CK-MB VALUE MASS 4.2 NG/ML (<3.6); MB/CK RELATIVE INDEX 1.16 (< OR =4); TROPONIN I 0.29 NG/ML (< 0.10)
[2020-04-03] VITALS (8 sets, daily range): BP systolic 82–126; BP diastolic 50–70
[2020-04-03 03:21] LABS: HEMATOCRIT 35.8 % (42.0-52.0); HEMOGLOBIN 11.6 g/dl (13.5-17.5); MEAN CORPUSCULAR HEMOGLOBIN 31.6 pg (27.0-33.0); MEAN CORPUSCULAR HGB CONC 32.4 g/dl (32.0-36.5); MEAN CORPUSCULAR VOLUME 97.5 fl (80.0-96.0); PLATELET COUNT, AUTOMATED 127 10^3/uL (150-450); RED BLOOD COUNT 3.67 10^6/uL (4.30-6.10); WHITE BLOOD COUNT 11.8 10^3/uL (4.0-10.0)
[2020-04-03 03:30] LABS: CHOLESTEROL RISK RATIO 1.962 (<5); CK-MB VALUE MASS 2.9 NG/ML (<3.6); CREATININE FOR GFR 1.42 MG/DL (0.70-1.30); GLOMERULAR FILTRATION RATE 50.9 (>35); MB/CK RELATIVE INDEX 0.98 (< OR =4); POTASSIUM SERUM 4.5 MEQ/L (3.5-5.1); TROPONIN I 0.35 NG/ML (< 0.10)
[2020-04-03 03:36] LABS: HEMOGLOBIN A1c 5.9 %; INR 1.3; PROTHROMBIN TIME 16.5 SECONDS (12.5-14.3)
[2020-04-03] MEDS: CARVedilol 3.125 MG TAB PO SCH ×2 (08:45→20:42)
[2020-04-03] MEDS: ACETAMINOPHEN 650MG ER TAB (TYLENOL ARTHRITIS) PO SCH (08:47)
[2020-04-03] MEDS: VITAMIN D 1,000 INTERNATIONAL UNITS TABLET PO SCH (08:47)
[2020-04-03] MEDS: TOLTERODINE TARTRATE 2 MG LA CAP (DETROL LA) PO SCH (08:48)
[2020-04-03] MEDS: ENOXAPARIN 80MG/0.8ML SYRINGE (J1650 PER 10MG) SC SCH (08:49)
[2020-04-03] MEDS ORDERED: LISINOPRIL *2.5 MG* TAB PO SCH (09:00)
[2020-04-03] MEDS ORDERED: ATORVASTATIN 20 MG TAB PO SCH (09:00)
[2020-04-03] MEDS ORDERED: OMEPRAZOLE 20 MG CAP PO SCH (09:00)
[2020-04-03] MEDS ORDERED: ASPIRIN 81 MG ENTERIC TAB PO SCH (09:00)
[2020-04-03] MEDS ORDERED: NS 500 ML IV ONE (16:45)
[2020-04-03 16:51] LABS: HEMATOCRIT 37.2 % (42.0-52.0); HEMOGLOBIN 11.9 g/dl (13.5-17.5); MEAN CORPUSCULAR HEMOGLOBIN 31.5 pg (27.0-33.0); MEAN CORPUSCULAR VOLUME 98.4 fl (80.0-96.0); PLATELET COUNT, AUTOMATED 158 10^3/uL (150-450); RED BLOOD COUNT 3.78 10^6/uL (4.30-6.10); WHITE BLOOD COUNT 11.1 10^3/uL (4.0-10.0)
[2020-04-03] MEDS ORDERED: HEPARIN DRIP 25,000 UNITS in IV 1 EA IV SCH (18:01)
[2020-04-03] MEDS ORDERED: ASPIRIN 81 MG ENTERIC TAB PO ONE (18:15)
[2020-04-03] MEDS ORDERED: HEPARIN SOD (PORCINE) 5000UNITS/ML 1ML VIAL/SYRINGE IV PRN (18:15)
[2020-04-03] MEDS ORDERED: [UNRECOGNIZED DRUG - OTHER] XX (18:18)
[2020-04-03] MEDS ORDERED: NITR4TASL SL (18:18)
[2020-04-03] MEDS ORDERED: ATOR1TAB21 PO (18:18)
[2020-04-03] MEDS ORDERED: HEPARIN XX (18:18)
[2020-04-03] MEDS ORDERED: HEPA500023 IV (18:18)
[2020-04-03] MEDS ORDERED: ASPI81TAEC PO (18:18)
[2020-04-03] MEDS ORDERED: ACET1TAB55 PO (18:18)
[2020-04-03] MEDS ORDERED: OMEP-218 PO (18:18)
[2020-04-03] MEDS ORDERED: HEPA1INJ78 IV (18:18)
[2020-04-03] MEDS ORDERED: PERCOCET PO (18:18)
--- NOTE | 2020-04-03 20:30 | DS.PDOC ---
Discharge Summary General Date of Admission Mar 31, 2020 at 13:46 Date of Discharge Apr 03, 2020 Attending Physician: KATIE BARLOW DO Specialist/Consultants [facility], Dr. Vásquez Discharge Summary PROCEDURES PERFORMED DURING STAY: Left hip hemiarthroplasty, cemented ADMITTING DIAGNOSES: 1. Mechanical fall from standing 2. Acute angulated transverse fracture through the left femoral neck 3. History of ITP s/p splenectomy 4. Raynaud's disease 5. CKD stage 3 6. Prostate cancer DISCHARGE DIAGNOSES: 1. STEMI 2. Mechanical fall from standing 3. Acute angulated transverse fracture through the left femoral neck 4. History of ITP s/p splenectomy 5. Raynaud's disease 6. CKD stage 3 7. Prostate cancer COMPLICATIONS/CHIEF COMPLAINT: Hip Fx Lt. HISTORY OF PRESENT ILLNESS: Mr. Dinero is an 79 year old male with CKD stage 3 and afib on warfarin who is here after he tripped on the saw horse's leg and fractured left hip. He was helping his friends with woodworking at the time. Patient had no prodromal symptoms prior to the fall and denied chest pain, pressure, tightness, lightheadedness, dizziness, palpitations, diaphoresis, nausea, vomiting, shortness of breath, fever, chills, changes in appetite, bright red blood per rectum, melena, black tarry stools, sore throat, changes in vision, earache, vertigo, weight gain, weight loss, polyphagia, polydipsia, upper or lower extremity weakness, paresthesias, rash or abnormal nodules. HOSPITAL COURSE: On 04/01/2020, he went to the OR. He had a left hip femoral neck fracture and they performed a left hip hemiarthroplasty, cemented. Plan for weight bearing as tolerated. After surgery, he demonstrated wide complex PVC on tele, and EKG demonstrated new Twave inversion in inferior leads. Troponins were initially elevated at 0.51. They spoke about transfer for Cath, but patient initially declined. He was treated with full dose lovenox and was started to bridge to warfarin. Today, he denied any chest pain or shortness of breath. We walked well in the afternoon. This evening, his blood pressure started to drop. Troponin and EKG was obtained. EKG demonstrated ST elevations in leads V1 to V3. Troponin was around 0.2. Patient did not have chest pain or dyspnea. Contacted Cardiology, Dr. Patterson who recommended transferred. [facility] accepted transfer. Spoke with Dr. Palma. DISCHARGE MEDICATIONS: Please see below. ALLERGIES: Please see below. PHYSICAL EXAMINATION ON DISCHARGE: VITAL SIGNS: Please see below. GENERAL: Comfortable HEENT: Head normocephalic/atraumatic, EOMI, sclera clear. RESPIRATORY: Lungs clear to auscultation bilaterally, no rales, wheeze or rhon chi. CARDIOVASCULAR: Tachycardic but regular ABDOMEN: Soft, nontender, no guarding or rebound tenderness. Normal bowel sounds. MUSCLE SKELETAL: Mild pitting edema bilaterally NEUROLOGICAL: CN 312 grossly intact, no focal deficits noted. PSYCHOLOGICAL: Normal mood and affect LABORATORY DATA: Please see below. IMAGING: Left hip x-ray Acute angulated transverse fracture through the left femoral neck. Echocardiogram A preliminary report of this study was relayed directly to the referring physician with particular attention to the localized wall motion abnormality andconcern that the observed ventricular ectopy may be a reflection of an acute coronary syndrome. PROGNOSIS: Guarded ACTIVITY: Weightbearing as tolerated with walker DIET: 2 g sodium DISCHARGE PLAN: Transfer DISPOSITION: Transferred to [facility] for cardiac cath. DISCHARGE INSTRUCTIONS: 1. Follow with your PCP 7 days from hospital discharge DISCHARGE CONDITION: Stable Total time spent on discharge planning, discharge summary, and medication reconciliation 55 minutes Vital Signs/I&Os Vital Signs Date Time Temp Pulse Resp B/P (MAP) Pulse Ox O2 Delivery O2 Flow Rate FiO2 04/03/20 18:04 115 110/50 (70) 04/03/20 16:00 97.8 16 90 Room Air 04/02/20 16:00 2.0 I&O- Last 24 Hours up to 6 AM 04/03/20 05:59 Intake Total 1600 ml Output Total 1325 ml Balance 275 ml Laboratory Data Labs 24H Laboratory Tests 2 04/02/20 21:08: Total Creatine Kinase 361H, Creatine Kinase MB 4.2H, Creatine Kinase MB Relative Index 1.16, Troponin I 0.29#H 04/03/20 02:54: Total Creatine Kinase 297, Creatine Kinase MB 2.9, Creatine Kinase MB Relative Index 0.98, Troponin I 0.35#H, Nucleated Red Blood Cells % (auto) 0.0, Prothro mbin Time 16.5H, Prothromb Time International Ratio 1.30, Anion Gap 6L, Glomerular Filtration Rate 50.9, Estimated Mean Plasma Glucose 123H, Hemoglobin A1c 5.9, Calcium Level 8.0L, Triglycerides Level 82, Total Cholesterol 157, LDL Cholesterol 61, Non-HDL Cholesterol (LDL + VLDL) 77, Total HDL Cholesterol 80, Cholesterol/HDL Ratio 1.962 04/03/20 16:40: Troponin I 0.20#H, Nucleated Red Blood Cells % (auto) 0.0 04/03/20 18:55: Activated Partial Thromboplast Time 48.1H CBC/BMP Laboratory Tests 04/03/20 02:54 04/03/20 16:40 Discharge Medications Scheduled Aspirin (Aspirin EC) 81 Mg Tablet.dr, 81 MG PO DAILY Atorvastatin Calcium (Atorvastatin Calcium) 20 Mg Tablet, 80 MG PO DAILY Cholecalciferol (Vitamin D3) (Vitamin D3) 1,000 Unit Tablet, 1,000 UNITS PO DAILY, (Reported) Heparin Sod,Pork in 0.45% NaCl (Heparin 25,000 Unit/250-1/2 Ns) 25,000 Unit/250 Ml Iv.soln, 1 INJ IV ONCE Omeprazole (Omeprazole) 20 Mg Capsule.dr, 20 MG PO DAILY Tolterodine Tartrate (Detrol LA) 4 Mg Cap.er.24h, 4 MG PO DAILY, (Reported) [Heparin Iv Rate Change Doc] MISC, 0 XX ASDIRECTED Scheduled PRN Acetaminophen (Acetaminophen) 325 Mg Tablet, 650 MG PO Q4HP PRN for MILD PAIN / FEVER Heparin Sodium,Porcine (Heparin Sodium) 5,000 Unit/1 Ml Syringe, 0 UNITS IV ASDIRECTED PRN for SEE LABEL COMMENTS Nitroglycerin (Nitrostat) 0.4 Mg Tab.subl, 0.4 MG SL Q5MP PRN for CHEST PAIN Oxycodone/Acetaminophen (Oxycodone-Acetaminophen 5-325) 1 Each Tablet, 1 TAB PO Q4H PRN for SEVERE PAIN Allergies Coded Allergies: Sulfa (Sulfonamide Antibiotics) (Unverified Allergy, Intermediate, RASH, 03/31/20) sulfamethoxazole (Unverified Allergy, Unknown, 03/31/20) trimethoprim (Unverified Allergy, Unknown, 03/31/20) KATIE BARLOW DO Apr 03, 2020 20:30
--- NOTE | 2020-04-04 06:07 | ECGEPIP ---
[facility] Test Date: 2020-04-03 Pat Name: ESTEBAN MARTINEZ Department: Room: [place] [address] Gender: Male Claim Auditor: : 1940 Requested By: KATIE Cantrell Order Number: [id number] Reading MD: Maria R Pal Measurements Intervals [place] Rate: 115 P: NC: 0 QRS: 53 QRSD: 125 T: -24 QT: 337 QTc: 468 Interpretive Statements ATRIAL FIBRILLATION WITH RAPID VENTRICULAR RESPONSE LBBB ATRIAL FIBRILLATION NEW NEW LEFT BUNDLE BRANCH BLOCK C/W 04/01/20 Electronically Signed on 04-04-2020 6:07:26 EST by Maria R Pal
--- NOTE | 2020-04-04 11:40 | IPN ---
ORTHOPAEDIC PROGRESS NOTE DATE: 04/02/2020 CHIEF COMPLAINT: Post-op day 1 left hip hemiarthroplasty for femoral neck fracture. HISTORY OF PRESENT ILLNESS: This 79-year-old man seen today post-op day 1 in the Progressive Care Unit. He had ECG changes during surgery. He is doing well this morning without chest pain, shortness of breath. PHYSICAL EXAMINATION: This is a well appearing 79-year-old man. Incision is clean, dry, free or redness or ecchymosis, no deformity. Normal sensation and his foot is warm and well perfused. Good pedal pulses. He is wiggling his toes. RADIOLOGY STUDIES: Post-operative radiographs reveal the component to be well positioned, well reduced. ASSESSMENT AND PLAN: This 79-year-old man will be weightbearing as tolerated, mobilization as tolerated with PT and OT teams. He is on the PCU being managed actively by the Hospitalist Service Dr. Souza and her colleagues who I appreciate for their support. Anticoagulation will be likely achieved back on his home dose of Coumadin. I will follow patient along while in hospital. BRITTANY
[2020-04-04] MEDS ORDERED: WARFARIN SOD 2.5MG TAB PO SCH (17:00)
--- NOTE | 2020-04-05 12:06 | CR ---
CONSULTATION CHIEF COMPLAINT: Left femoral neck fracture. HISTORY OF PRESENT ILLNESS: This is an 79-year-old man who I am seeing today for a left femoral neck fracture. He is seen on the [facility]. He fell yesterday at a friend's house when they were working on a wood working project. He fell on a concrete floor. He was unable to ambulate. He is followed by the emergency department physician reception centre manager who stated that the patient has a femoral neck fracture and admitted under the hospitalist, Dr. Souza. He has been n.p.o. this morning. For full past medical history and medical consultation, please see Dr. Souza's notes. PAST MEDICAL HISTORY: Includes atrial fibrillation, and apparently a PE, as well as lymphoma. MEDICATIONS: Include Coumadin. PAST SURGICAL HISTORY: Prostate cancer surgery, gallbladder, and spleen. SOCIAL HISTORY: He lives alone in an apartment. He is a community ambulator. He does his own groceries and cooking. He has no ambulatory aids. He is a nonsmoker and does not use tobacco products. PHYSICAL EXAMINATION: GENERAL: Well-appearing 79-year-old man. He is alert and oriented x3. He responds appropriately. He is lying more onto his right side. He states that the hip fracture is on the left side. There is no obvious overlying , muscle deformity, or atrophy. Left hip is marked. Normal sensation and motor function of his foot. He has strong dorsalis and tibialis posterior pulses in the left lower extremity. The foot is warm and well-perfused. Normal sensation to the left foot. He is able to wiggle his toes, dorsiflex and plantarflex to the foot. No pain to the knee. IMAGING: Radiographs are reviewed of the left hip, which shows a displaced transverse femoral neck fracture. No obvious other injuries including full length femur views. LABORATORY DATA: INR was elevated at 1.88 down to 1.67 this morning. ASSESSMENT AND PLAN: This 79-year-old man has a left femoral neck fracture. His INR is a little bit high to consider spinal anesthetics, so we will check with decorating equipment setter reception centre manager, Dr. Vazquez to see whether he is safe to go ahead with a general anesthetic. We will give a dose of vitamin K to see if the INR will come down in case the decorating equipment setter team desires to do a spinal anesthetic. Regardless, this man would benefit from a left hip hemiarthroplasty. We discussed the pros, cons, risks, and benefits of nonsurgical management versus left hip surgery. We discussed risks of left hip surgery include, but are not limited to infection, pain, damage to surrounding structures, neurovascular injury, fracture, instability, component disassociation, component wear, further progression of pre-existing hip osteoarthritis, pain, limp, anesthetic complications, blood clots, bleeding, and other risks, as well as need for further surgery or revision. He wished to go ahead and signed the consent form for surgery, as well as possible need for blood products, and I explained the risks of that to him as well including, but not limited to infection, bacterial viruses, as well as fever, and allergic reaction. We talked about fracture risk as well. We will keep the patient n.p.o. in preparation for surgery. He had no further questions and the [facility] was aware last night of the case as well.
== END 2020-04-03 21:10 | disposition short-term general hospital (02) | DRG 521 ==
LOC: EDBD 13:02 → M ED 13:02 → M ED INP 13:46 → ENRESERV 15:08 → M MS5PR 16:00 → M PCU 04-01 12:22 → M RR INP 04-01 12:33 → M PCU 04-01 13:01
PROVIDERS: ADMIT General Practice; ATTEND Internal Medicine
PROC: 30233K1 Transfusion of Nonautologous Frozen Plasma into Peripheral Vein, Percutaneous Approach (ICD-10-PCS; 2020-04-01)
PROC: 0SRS0J9 Replacement of Left Hip Joint, Femoral Surface with Synthetic Substitute, Cemented, Open Approach (ICD-10-PCS; principal; 2020-04-01 08:00)
DX: S72.002A Fracture of unspecified part of neck of left femur, initial encounter for closed fracture (principal); I21.3 ST elevation (STEMI) myocardial infarction of unspecified site; I48.20 Chronic atrial fibrillation, unspecified; I13.0 Hypertensive heart and chronic kidney disease with heart failure and stage 1 through stage 4 chronic kidney disease, or unspecified chronic kidney disease; W18.09XA Striking against other object with subsequent fall, initial encounter; Y92.89 Other specified places as the place of occurrence of the external cause; Y93.89 Activity, other specified; Y99.8 Other external cause status; I73.00 Raynaud's syndrome without gangrene; I25.10 Atherosclerotic heart disease of native coronary artery without angina pectoris; N18.30 Chronic kidney disease, stage 3 unspecified; I50.9 Heart failure, unspecified; Z66 Do not resuscitate; I27.20 Pulmonary hypertension, unspecified; E89.0 Postprocedural hypothyroidism; N32.81 Overactive bladder; N40.1 Benign prostatic hyperplasia with lower urinary tract symptoms; Z85.46 Personal history of malignant neoplasm of prostate; Z98.41 Cataract extraction status, right eye; Z98.42 Cataract extraction status, left eye; Z90.49 Acquired absence of other specified parts of digestive tract; Z79.01 Long term (current) use of anticoagulants; Z85.79 Personal history of other malignant neoplasms of lymphoid, hematopoietic and related tissues; Z86.711 Personal history of pulmonary embolism; Z79.899 Other long term (current) drug therapy; Z20.828 Contact with and (suspected) exposure to other viral communicable diseases

== ENCOUNTER → 2020-08-20 | Outpatient (CLI) | payer MEDICARE ==
[~2020-08-20] MED LIST changes: +ACE65ERTAB PO; +ACET1TAB55 PO; +ASPI-569 PO; +ATOR1TAB21 PO; +D31000TA2 PO; +DETR4CAP PO; +HEPA1INJ78 IV; +HEPA500023 IV; +HEPARIN XX; +NITR4TASL SL; +OMEP-218 PO; +PERCOCET PO; +PRIM50TA6 PO; +WARF-18 PO; +[UNRECOGNIZED DRUG - OTHER] XX
--- NOTE | 2020-08-20 10:22 | REP ---
INDICATION: AFTERCARE Status post arthroplasty. COMPARISON: None. TECHNIQUE: AP and frog-lateral views of the left hip. FINDINGS: The patient is status post left hip replacement with normal positioning and appearance to the femoral and acetabular components. IMPRESSION: Satisfactory left hip replacement radiographs. <Electronically signed by Cheikh Joya > 08/20/20 [id number]
== END ==
LOC: M SOG 09:02
PROVIDERS: ATTEND Orthopaedic Surgery Sports Medicine
DX: Z47.89 Encounter for other orthopedic aftercare (principal); Z96.642 Presence of left artificial hip joint

== ENCOUNTER → 2020-12-27 | Outpatient (CLI) | payer MEDICARE ==
--- NOTE | 2020-12-27 09:39 | REP ---
INDICATION: ORTHOPEDIC AFTERCARE COMPARISON: 08/20/2020 TECHNIQUE: AP and frog-lateral views left hip. FINDINGS: The patient is status post left hip replacement with normal positioning and appearance to the femoral and acetabular components. IMPRESSION: Satisfactory left hip replacement radiographs. <Electronically signed by Cheikh Joya > 12/27/20 [id number]
== END ==
LOC: M SOG 09:21
PROVIDERS: ATTEND Orthopaedic Surgery Sports Medicine
DX: Z47.89 Encounter for other orthopedic aftercare (principal)

== ENCOUNTER 2021-01-13 12:46 | Emergency (ER) | payer MEDICARE ==
[~2021-01-13] VITALS: Ht 167.6 cm; Wt 71.4 kg
[2021-01-13] MEDS ORDERED: FURO20TA2 (12:58)
[2021-01-13] MEDS ORDERED: PRIM50TA6 (13:02)
[2021-01-13] MEDS ORDERED: ATOR40TA75 (13:02)
[2021-01-13] MEDS ORDERED: TORS10TA3 (13:02)
[2021-01-13] MEDS ORDERED: WARF-18 (13:02)
[2021-01-13] MEDS ORDERED: CLOP75TA2 (13:02)
[2021-01-13] MEDS ORDERED: CARV3.12 (13:02)
[2021-01-13] MEDS ORDERED: FLEET ENEMA PR STA (13:32)
--- NOTE | 2021-01-13 14:12 | REP ---
INDICATION: Constipation. COMPARISON: Chest 03/31/2020. TECHNIQUE: Frontal view chest, supine and erect views of the abdomen. FINDINGS: There is no evidence of free intraperitoneal air. There is a nonspecific bowel gas pattern. Mild air is scattered throughout the GI tract with no compelling evidence for small bowel obstruction. Multiple metallic clips are seen in the abdomen and pelvis. There is an IVC filter present with the superior tip at the L2-3 level. Metallic prosthesis is noted of the proximal left femur. No infiltrate is seen in either lung. The heart and mediastinum are unremarkable. IMPRESSION: No free air or evidence of obstruction. Nonspecific bowel gas pattern. <Electronically signed by Ricky Leroy > 01/13/21 [id number]
[2021-01-13 15:09] LABS: BASO # 0.1 10^3/uL (0.0-0.2); BASO % 0.4 % (0.0-1.0); EOS # 0.1 10^3/uL (0.0-0.5); EOS % 0.7 % (0.0-3.0); HEMATOCRIT 42.9 % (42.0-52.0); HEMOGLOBIN 14.4 g/dl (13.5-17.5); LYMPH # 2.2 10^3/uL (1.5-5.0); LYMPH % 15.9 % (24.0-44.0); MEAN CORPUSCULAR HEMOGLOBIN 31.9 pg (27.0-33.0); MEAN CORPUSCULAR HGB CONC 33.6 g/dl (32.0-36.5); MEAN CORPUSCULAR VOLUME 95.1 fl (80.0-96.0); MONO # 1.4 10^3/uL (0.0-0.8); MONO % 10.5 % (2.0-8.0); NEUTROPHILS # 9.8 10^3/uL (1.5-8.5); NEUTROPHILS % 72.1 % (36.0-66.0); PLATELET COUNT, AUTOMATED 271 10^3/uL (150-450); RED BLOOD COUNT 4.51 10^6/uL (4.30-6.10); WHITE BLOOD COUNT 13.6 10^3/uL (4.0-10.0)
[2021-01-13] MEDS: GASTROGRAFIN SOLUTION 30ML PO SCH ×2 (15:27→16:12)
[2021-01-13 15:30] LABS: BLOOD UREA NITROGEN 24 MG/DL (7-18); CALCIUM LEVEL 9.1 MG/DL (8.8-10.2); CARBON DIOXIDE LEVEL 29 MEQ/L (21-32); CHLORIDE LEVEL 110 MEQ/L (98-107); CREATININE FOR GFR 1.21 MG/DL (0.70-1.30); GLOMERULAR FILTRATION RATE > 60.0 (>35); GLUCOSE, FASTING 107 MG/DL (70-100); POTASSIUM SERUM 4.3 MEQ/L (3.5-5.1); SODIUM LEVEL 144 MEQ/L (136-145)
[2021-01-13] MEDS ORDERED: ISOVUE-370 76% 100ML VIAL As Ordered ONE (17:02)
--- NOTE | 2021-01-13 19:06 | REPVR ---
PROCEDURE INFORMATION: Exam: CT Abdomen And Pelvis With Contrast Exam date and time: 01/13/2021 5:42 PM Age: 80 years old Clinical indication: Abdominal pain; Additional info: Diffuse abd pain, HX lymphoma TECHNIQUE: Imaging protocol: Computed tomography of the abdomen and pelvis with contrast. Radiation optimization: All CT scans at this facility use at least one of these dose optimization techniques: automated exposure control; mA and/or kV adjustment per patient size (includes targeted exams where dose is matched to clinical indication); or iterative reconstruction. Contrast material: ISOVUE 370; Contrast volume: 100 ml; Contrast route: INTRAVENOUS (IV); Other contrast: Oral, gastrographin , 16 oz; COMPARISON: CR Abdomen,Flat Upright,PA CHEST 01/13/2021 1:22 PM FINDINGS: Lungs: Mild bibasilar fibro-atelectatic change, greatest in the lower lobes. Liver: Normal. No mass. Gallbladder and bile ducts: Status post cholecystectomy. Pancreas: Numerous small cystic areas within the pancreas primarily involving the body and tail measuring approximately 11 mm or less. Spleen: Status post splenectomy. Adrenal glands: Normal. No mass. Kidneys and ureters: There are bilateral renal cysts measuring up to 12.6 x 11.7 x 7.6 cm on the right with a Hounsfield measurement of 7. These appear to reflect simple cysts. No follow-up imaging is recommended. Stomach and bowel: Moderate stool and gas throughout much of the colon. Slight wall thickening of the sigmoid and rectum with slight pericolonic edema. Appendix: There are no changes of appendicitis. A normal appendix is not seen. Intraperitoneal space: Unremarkable. No free air. No significant fluid collection. Vasculature: There is an IVC filter in position. Lymph nodes: Unremarkable. No enlarged lymph nodes. Urinary bladder: Unremarkable as visualized. Reproductive: Status post prostatectomy with surgical clips in the low pelvis. 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 Left hip hemiprosthesis in position. Soft tissues: Unremarkable. IMPRESSION: 1. Minimal nonspecific distal colitis involving the sigmoid and rectum with moderate stool and gas throughout much of the colon. 2. IVC filter in position. 3. Status post cholecystectomy, splenectomy and prostatectomy. 4. Mild bibasilar fibro-atelectatic change, greatest in the lower lobes. 5. 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 COMMENTS: 1. Consistent with the [employer]'s Incidental Findings Committee white paper (J Am Mlyes Radiol 2018): Any incidental renal lesion less than 1 cm or classified as too small to characterize, or any incidental cystic renal lesion characterized as simple-appearing, is likely benign. No follow-up imaging is recommended for these lesions per consensus recommendations based on imaging criteria. 2. For patients with an IVC filter, recommend assessment for a management plan for the patient's IVC filter. If there is no established management plan, recommend referral to an interventional clinician on a nonemergent basis for evaluation. Electronically signed by: Praneeth Dickey On 01/13/2021 19:06:20 PM
[2021-01-13 21:12] VITALS: BP 134/84
--- NOTE | 2021-01-14 06:32 | ED PDOC ---
Post-Departure Follow-Up ct abd/p faxed to dr diggs for fu Nita Olvera MD Jan 14, 2021 06:31
== END 2021-01-13 21:46 | disposition home or self-care (01) ==
LOC: M ED 12:46
DX: K59.00 Constipation, unspecified (principal); I12.9 Hypertensive chronic kidney disease with stage 1 through stage 4 chronic kidney disease, or unspecified chronic kidney disease; I48.91 Unspecified atrial fibrillation; E07.9 Disorder of thyroid, unspecified; N18.9 Chronic kidney disease, unspecified; Z85.46 Personal history of malignant neoplasm of prostate; Z90.79 Acquired absence of other genital organ(s); Z95.5 Presence of coronary angioplasty implant and graft; Z85.72 Personal history of non-Hodgkin lymphomas; Z88.2 Allergy status to sulfonamides; Z79.899 Other long term (current) drug therapy; Z79.01 Long term (current) use of anticoagulants; Z79.02 Long term (current) use of antithrombotics/antiplatelets
CPT/HCPCS: 36415; 74021; 74177; 80048; 85025; 99284; Q9963; Q9967

== ENCOUNTER → 2021-03-06 | Outpatient (REF) | payer MEDICARE ==
[~2021-03-06] MED LIST changes: +ATOR40TA75; +CARV3.12; +CLOP75TA2; +FURO20TA2; +PRIM50TA6; +TORS10TA3; +WARF-18
== END ==
LOC: M LAB REF 17:24
PROVIDERS: ATTEND Internal Medicine
DX: M25.552 Pain in left hip (principal)

== ENCOUNTER → 2021-03-18 | Outpatient (REF) | payer MEDICARE | LOC: M LAB REF 16:20 | PROVIDERS: ATTEND Internal Medicine | DX: C83.00 Small cell B-cell lymphoma, unspecified site (principal) ==

== ENCOUNTER → 2021-07-08 | Outpatient (REF) | payer MEDICARE ==
[~2021-07-08] MED LIST changes: -D31000TA2 PO; +OMEP-173 PO; -OMEP-218 PO; +VITA100093 PO
[2021-07-08 17:45] LABS: PERCENT SATURATION 22.3 % (19.7-50.0)
== END ==
LOC: M LAB REF 16:26
PROVIDERS: ATTEND Internal Medicine
DX: M25.552 Pain in left hip (principal)

== ENCOUNTER → 2021-09-12 | Outpatient (CLI) | payer MEDICARE | LOC: M RAD 15:21 | PROVIDERS: ATTEND Internal Medicine | DX: R22.42 Localized swelling, mass and lump, left lower limb (principal) ==

== ENCOUNTER → 2021-10-04 | Outpatient (REF) | payer MEDICARE | LOC: M LAB REF 12:24 | PROVIDERS: ATTEND Internal Medicine | DX: D64.9 Anemia, unspecified (principal) ==

== ENCOUNTER → 2022-04-17 | Outpatient (CLI) | payer MEDICARE ==
[~2022-04-17] MED LIST changes: +E-Z-GAS II EFFERVESCENT PACKET (SODIUM BICARB./CITRIC ACID/SIMETHICONE) As Ordered ONE; +E-Z-HD 98% w/w 340GM SUSP BTL As Ordered ONE; +E-Z-PAQUE 96% w/w SUSP 176GM BTL As Ordered ONE
== END ==
LOC: M RAD 09:28
PROVIDERS: ATTEND Otolaryngology
DX: K21.9 Gastro-esophageal reflux disease without esophagitis (principal)

== ENCOUNTER → 2022-05-30 | Outpatient (CLI) | payer MEDICARE ==
[~2022-05-30] MED LIST changes: -E-Z-GAS II EFFERVESCENT PACKET (SODIUM BICARB./CITRIC ACID/SIMETHICONE) As Ordered ONE; -E-Z-HD 98% w/w 340GM SUSP BTL As Ordered ONE; +VARIBAR NECTAR 40% w/v 240ML SUSP BTL As Ordered ONE; +VARIBAR PUDDING 40% w/v 230ML TUBE As Ordered ONE
== END ==
LOC: M RAD 10:36
PROVIDERS: ATTEND Otolaryngology
DX: R13.10 Dysphagia, unspecified (principal); K21.9 Gastro-esophageal reflux disease without esophagitis

== ENCOUNTER → 2022-08-05 | Outpatient (REF) | payer MEDICARE ==
[~2022-08-05] MED LIST changes: -E-Z-PAQUE 96% w/w SUSP 176GM BTL As Ordered ONE; -VARIBAR NECTAR 40% w/v 240ML SUSP BTL As Ordered ONE; -VARIBAR PUDDING 40% w/v 230ML TUBE As Ordered ONE
== END ==
LOC: M LAB REF 12:27
PROVIDERS: ATTEND Internal Medicine
DX: C85.95 Non-Hodgkin lymphoma, unspecified, lymph nodes of inguinal region and lower limb (principal)

== ENCOUNTER → 2022-08-06 | Outpatient (CLI) | payer MEDICARE | LOC: M WUC 08:29 | PROVIDERS: ATTEND Internal Medicine | DX: M05 Rheumatoid arthritis with rheumatoid factor (principal) ==

== ENCOUNTER → 2022-09-04 | Outpatient (CLI) | payer MEDICARE | LOC: M WHC 14:13 | PROVIDERS: ATTEND Internal Medicine | DX: N18.9 Chronic kidney disease, unspecified (principal) ==

== ENCOUNTER → 2023-04-13 | Outpatient (REF) | payer MEDICARE ==
[2023-04-13 17:46] LABS: FOLATE > 24.0 NG/ML (>5.4); VITAMIN B12 LEVEL 577 PG/ML (211-911)
== END ==
LOC: M LAB REF 16:21
PROVIDERS: ATTEND Internal Medicine
DX: G60.9 Hereditary and idiopathic neuropathy, unspecified (principal)

== ENCOUNTER → 2023-04-22 | Outpatient (REF) | payer MEDICARE | LOC: M LAB REF 12:24 | PROVIDERS: ATTEND Internal Medicine | DX: M25.50 Pain in unspecified joint (principal) ==

== ENCOUNTER → 2023-05-06 | Outpatient (CLI) | payer MEDICARE | LOC: M PLAIMG 07:05 | PROVIDERS: ATTEND Internal Medicine | DX: M25.551 Pain in right hip (principal) ==

== ENCOUNTER → 2023-06-15 | Outpatient (REF) | payer MEDICARE | LOC: M LAB REF 12:44 | PROVIDERS: ATTEND Internal Medicine | DX: R06.00 Dyspnea, unspecified (principal); R60.0 Localized edema ==

== ENCOUNTER → 2023-06-25 | Outpatient (REF) | payer MEDICARE | LOC: M LAB REF 12:09 | PROVIDERS: ATTEND Internal Medicine | DX: I50.43 Acute on chronic combined systolic (congestive) and diastolic (congestive) heart failure (principal) ==

== ENCOUNTER → 2023-07-29 | Outpatient (CLI) | payer MEDICARE | LOC: M CARPUL 10:35 | PROVIDERS: ATTEND Internal Medicine | DX: I50.43 Acute on chronic combined systolic (congestive) and diastolic (congestive) heart failure (principal) ==

== ENCOUNTER → 2023-08-31 | Outpatient (REF) | payer MEDICARE | LOC: M LAB REF 16:29 | PROVIDERS: ATTEND Internal Medicine | DX: I26.99 Other pulmonary embolism without acute cor pulmonale (principal); I50.42 Chronic combined systolic (congestive) and diastolic (congestive) heart failure ==

== ENCOUNTER → 2023-10-28 | Outpatient (CLI) | payer MEDICARE | LOC: M RAD 07:36 | PROVIDERS: ATTEND Orthopaedic Surgery | DX: M25.552 Pain in left hip (principal) | CPT/HCPCS: 78315; A9503 ==

== ENCOUNTER → 2024-02-03 | Outpatient (REF) | payer MEDICARE | LOC: M SFHCDERM 17:58 | PROVIDERS: ATTEND Physician Assistant | DX: C44.1222 Squamous cell carcinoma of skin of right lower eyelid, including canthus (principal) ==

== ENCOUNTER → 2024-11-18 | Outpatient (REF) | payer MEDICARE | LOC: M LAB REF 11:24 | PROVIDERS: ATTEND Internal Medicine | DX: R19.7 Diarrhea, unspecified (principal) ==

== ENCOUNTER → 2025-03-24 | Outpatient (REF) | payer MEDICARE ==
[~2025-03-24] MED LIST changes: -ACE65ERTAB PO; +ACET-1593 PO
== END ==
LOC: M SFHCDERM 13:25
PROVIDERS: ATTEND Physician Assistant
DX: C44.519 Basal cell carcinoma of skin of other part of trunk (principal)